=== PATIENT | female | born 1995 | race Caucasian/White ===

== ENCOUNTER 2025-01-13 09:05 | Emergency (ER) | payer OTHER ==
[2025-01-13 09:42] LABS: #Basophils Less than 0.03 10x3/uL (0.0-0.2); #Eosinophils 0.08 10x3/uL (0.0-0.5); #Monocytes 0.38 10x3/uL (0.0-1.1); #Neutrophils 3.07 10x3/uL (1.5-8.4); %Basophils 0.3 % (0.0-2.0); %Eosinophils 1.4 % (0.0-6.0); %Lymphocytes 38.9 % (18.0-47.0); %Monocytes 6.5 % (0.0-10.0); %Neutrophils 52.7 % (40.0-75.0); Hematocrit 37.5 % (34.9-44.5); Hemoglobin 12.6 g/dL (12.0-15.5); Mean Corpuscular Hemoglobin 29.6 pg (27.0-33.0); Mean Corpuscular Volume 88.2 fL (81.6-98.3); Platelet Count 185 10x3/uL (150-450); Red Blood Cell (RBC) Count 4.25 10x6/uL (3.90-5.03); White Blood Cell (WBC) Count 5.83 10x3/uL (3.5-10.5)
[2025-01-13 09:59] LABS: ALT (SGPT) 9 U/L (Less than 34); AST (SGOT) 18 U/L (11-34); Albumin 4.2 g/dL (3.1-4.5); Alkaline Phosphatase 53 U/L (40-110); Anion Gap 12 mmol/L (10-20); BUN (Urea Nitrogen) 10 mg/dL (7.0-18.7); Bilirubin, Total 0.4 mg/dL (0.3-1.2); Calc. Creatinine Clearance 0 mL/min (70-130); Calcium 8.9 mg/dL (7.8-10.44); Carbon Dioxide 25 mmol/L (22-29); Chloride 107 mmol/L (98-107); Globulin 2.8 g/dL (2.4-3.5); Glucose 96 mg/dL (70-105); Lipase 20 U/L (8-78); Potassium 3.8 mmol/L (3.5-5.1); Sodium 140 mmol/L (136-145)
[2025-01-13 10:06] LABS: BHCG - Serum Negative (NEGATIVE); Pregs Control Background? CLEAR/WHITE (CLR/WHITE); Pregs Control Bar Appear? YES (CONTROL BAR)
[2025-01-13 10:43] LABS: Glucose, Urine (Dipstick) Normal (Negative); Leukocyte 25 (Negative); Protein, Urine (Dipstick) 30 mg/dl (Neg-Trace); Specific Gravity, Urine 1.025 (1.005-1.030)
[2025-01-13 10:55] LABS: CAUTI Indications for Culture Pelvic or flank pain; RBC/HPF 0-3 HPF (0-3); WBC/HPF 0-3 HPF (0-3)
[2025-01-13 10:56] LABS: Bacteria/HPF 1+ HPF (None Seen); Mucous/LPF 2+ LPF (<2+); Urine Culture Reflex No No
== END 2025-01-13 12:55 | disposition home or self-care (01) ==
LOC: CSHERS 09:05
DX: K80.20 Calculus of gallbladder without cholecystitis without obstruction (principal)
CPT/HCPCS: 76705; 80053; 81001; 83605; 83690; 84703; 85025

== ENCOUNTER 2025-01-16 12:27 | Outpatient (CLI) | payer OTHER ==
[2025-01-16 13:55] LABS: BHCG - Serum Negative (NEGATIVE)
[2025-01-16 13:56] LABS: Pregs Control Background? CLEAR/WHITE (CLR/WHITE); Pregs Control Bar Appear? YES (CONTROL BAR)
== END 2025-01-16 12:28 | disposition home or self-care (01) ==
LOC: CSHLAB 12:27
PROVIDERS: ATTEND Surgery
DX: Z01.812 Encounter for preprocedural laboratory examination (principal); K80.20 Calculus of gallbladder without cholecystitis without obstruction
CPT/HCPCS: 84703

== ENCOUNTER 2025-01-16 13:55 | Day surgery (SDC) | payer OTHER ==
[2025-01-16 12:47] VITALS: BMI 24.3
[2025-01-17] MEDS ORDERED: Bupivacaine/Epinephrine 0.25% 30 ML VIAL ONE (07:35)
[2025-01-17] MEDS ORDERED: Rocuronium Bromide 10 MG/ML (10ML VIAL) ONE (08:25)
[2025-01-17] MEDS ORDERED: CEFAZOLIN 2 GM VIAL ONE (08:25)
[2025-01-17] MEDS ORDERED: PROPOFOL 20 ML ONE (08:25)
[2025-01-17] MEDS ORDERED: Lidocaine 1% PF 5 ML VIAL ONE (08:26)
[2025-01-17] MEDS ORDERED: Ondansetron PF 4 MG/2 ML Vial ONE ×3 (08:51→10:32)
[2025-01-17] MEDS ORDERED: SUGAMMADEX SODIUM 200 MG/2 ML VIAL ONE (09:16)
[2025-01-17] MEDS ORDERED: HYDROcodone/Acetaminophen 5/325 mg Tablet ONE (10:33)
== END 2025-01-17 11:40 | disposition home or self-care (01) ==
LOC: CSHSDC 13:55 → CSHTELE 01-17 05:52 → UNDOADMIN 01-17 05:52 → CSHSDC 01-17 11:40 → UNDODISIN 01-17 11:40
PROVIDERS: ATTEND Surgery
PROC: 0FT44ZZ Resection of Gallbladder, Percutaneous Endoscopic Approach (ICD-10-PCS; principal; 2025-01-17)
DX: K80.10 Calculus of gallbladder with chronic cholecystitis without obstruction (principal); K82.8 Other specified diseases of gallbladder
CPT/HCPCS: 88304; C1889; J1100; J2405; J2704; J3010; S2900